=== PATIENT | female | born 1990 | race American Indian/Alaskan Native ===

== ENCOUNTER 2019-08-14 12:15 | Emergency (ER) | payer MEDICAID ==
[2019-08-14 12:29] VITALS: BP 122/54
--- NOTE | 2019-08-14 12:59 | Emergency Department Report ---
Chief Complaint: Upper Respiratory Infection Stated Complaint: FLU SX Time Seen by Provider: 08/14/19 12:28 - HPI History of Present Illness: 28 yo Female presents with cough, sold and fever x 2 days pt is here with her daughter and sister with similar symptoms She denies chest pain, she is drinking fluids and acting normally - ROS Review of Systems: as noted in HPI - Exam Vital Signs: Vital Signs 08/14/19 12:28 Temperature 98.7 F Pulse Rate 82 Respiratory 20 Rate Blood Pressure 122/54 O2 Sat by Pulse 100 Oximetry Physical Exam: Gen:AAO x 3 MSE screening note: Focused history and physical exam performed. Due to findings the following was ordered: ED Disposition for MSE Clinical Impression: Upper respiratory infection Disposition: MED SCREENING EXAM-LEFT Is pt being admited?: No Does the pt Need Aspirin: No Condition: Stable Instructions: Viral Syndrome (ED), Upper Respiratory Infection (ED) Forms: Work/School Release Form(ED) Time of Disposition: 12:58
== END 2019-08-14 13:22 | disposition left against medical advice (07) ==
LOC: ED 12:15
DX: J06.9 Acute upper respiratory infection, unspecified (principal)
CPT/HCPCS: 99281

== ENCOUNTER 2021-09-20 16:35 | Emergency (ER) | payer MEDICAID ==
[2021-09-20 16:46] VITALS: BP 131/67
== END 2021-09-20 21:41 | disposition left against medical advice (07) ==
LOC: ED 16:35
DX: H92.09 Otalgia, unspecified ear (principal); Z53.21 Procedure and treatment not carried out due to patient leaving prior to being seen by health care provider